=== PATIENT | male | born 1940 | race Caucasian/White ===

== ENCOUNTER → 2021-01-19 | Outpatient (CLI) | payer OTHER | LOC: COL.RAD 13:15 | DX: C41.2 Malignant neoplasm of vertebral column (principal); M21.821 Other specified acquired deformities of right upper arm | CPT/HCPCS: A9575 ==

== ENCOUNTER → 2021-01-22 | Outpatient (CLI) | payer OTHER | LOC: COL.RAD 09:15 | DX: C41.2 Malignant neoplasm of vertebral column (principal); C79.51 Secondary malignant neoplasm of bone; M21.821 Other specified acquired deformities of right upper arm | CPT/HCPCS: A9503 ==

== ENCOUNTER 2021-02-11 09:31 | Day surgery (SDC) | payer OTHER ==
[2021-02-11] VITALS (11 sets, daily range): BP systolic 117–132; BP diastolic 59–77; PULSE 51–74; TEMP 97.2–98.9
[~2021-02-11] VITALS: Ht 180.3 cm; Wt 75.6 kg
[2021-02-11] MEDS ORDERED: EUTHYROX50 MCG PO (10:31)
[2021-02-11] MEDS ORDERED: DECADRON 4MG TAB4 MG PO (10:32)
[2021-02-11] MEDS ORDERED: FLOMAX 0.40.4 MG/CAP PO (10:32)
[2021-02-11] MEDS ORDERED: PYRIDIUM 100MG100 MG PO (11:33)
--- NOTE | 2021-02-11 12:50 | NUR ---
Initial visit; Patient thanked Ledger Clerk for looking in on him and offering encouragement and prayer prior to his surgical procedure.
--- NOTE | 2021-02-11 14:00 | NUR ---
Pt is doing well, no pain complaints. CBI running at moderate rate. [place] tinged with no clots. Educated pt on post op care and well as oriented him to his room. Pts son is present in the room for the education. Assisted pt with ordering his food. No other needs needed, call light within reach
--- NOTE | 2021-02-11 14:52 | NUR ---
Pt continues to do well with no pain complaints. Slowed CBI down a little. Output continues to be pink tinged with no clots. Pt did tolerate a general diet, IVF int'd. Pts son remains in her room.
--- NOTE | 2021-02-11 18:44 | NUR ---
Pt has done well, tolerated general diet. CBI running at moderate rate with clear, red tinged output.
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
[2021-02-12 03:38] VITALS: BP 123/73; PULSE 69; TEMP 98.2
--- NOTE | 2021-02-12 06:11 | NUR ---
PT HAS BEEN UP TO BR THIS MORNING WITH SBA. PT REPORTS NO BM BUT HAS LOTS OF GAS ET A TRACE AMOUNT OF DARK LIQUID STOOL. PT AMBULATES EASILY IN ROOM, GAIT IS STEADY. CBI RUNNING @ A SLOW RATE. A FEW SMALL RED CLOTS ARE SEEN IN GU TUBING AFTER PT STANDS UP OUT OF BED BUT THEN QUICKLY CLEAR UP. URINE IS LIGHT PINK ET CLEAR NOW. PT HAS BEEN DRINKING WELL, REPORTS DRINKING LOTS OF WATER. DENIES OTHER NEEDS. CALL LIGHT WITHIN REACH.
[2021-02-12 07:26] VITALS: BP 127/60; PULSE 67; TEMP 98
--- NOTE | 2021-02-12 08:00 | NUR ---
Urology has been in to see pt, orders to remove allen and start 6 bottle. Educated pt on this and removed catheter. Pt not having any pain. He has had breakfast and tolerated it with no complaints. Placed urinal in bathroom and educated to ring nursing each time he goes. Call light within reach, will continue to monitor
--- NOTE | 2021-02-12 10:23 | NUR ---
Follow-up visit; Patient thanked Cell Tender for looking in on him this morning following his surgical procedure. Patient stated prayer was very helpful for him and his nurse prior to surgery. He stated following prayer she was able to find his vein after trying several times prior. God is Good he said and Cell Tender agreed.
--- NOTE | 2021-02-12 10:55 | NUR ---
child daycare worker met with patient to discuss discharge plan. Patient reports that he lives at home with his Cesar ([phone]) in [place]. Patient reports that he is fully independent with his activities of daily living and does not utilize any DME to assist with mobility. Patient has no oxygen needs at home. PCP is Dr. Alejandra in [place] and he utilizes [address] in [place] for medications with no cost difficulty. Patient states he does have a [facility] established listing his daughter Belia ([phone]). PCP office contacted and will be faxing a copy to the surgical unit. Patient is planning on returning home with no concerns. Discharge plan: Home
[2021-02-12 11:43] VITALS: BP 132/71; PULSE 76; TEMP 98.5
--- NOTE | 2021-02-12 12:00 | NUR ---
Pt has not been able to void since catheter out, bladder scan >800. Notified Dr Andrews. he stated to update Lexii ROBIN
--- NOTE | 2021-02-12 13:09 | NUR ---
Updated Lexii ROBIN regarding pt not being able to void, but having the feeling. Received order to replace allen and okay for pt to discharge home.
--- NOTE | 2021-02-12 14:26 | NUR ---
Pt was not able to void, catheter placed per order. Reviewed discharge instructions with pt. Pt reported that he has had a catheter for a while and understands how to care for it. INT removed. Educated pt to notify nursing when his ride is here.
== END 2021-02-12 14:37 | disposition home or self-care (01) ==
LOC: SDCO 09:31 → SURG 13:20 → SDCO 02-12 14:37
DX: C61 Malignant neoplasm of prostate (principal); N40.1 Benign prostatic hyperplasia with lower urinary tract symptoms; R33.8 Other retention of urine; R39.12 Poor urinary stream; R39.14 Feeling of incomplete bladder emptying; R35.1 Nocturia; E03.9 Hypothyroidism, unspecified; Z79.899 Other long term (current) drug therapy; Z79.890 Hormone replacement therapy
CPT/HCPCS: OP; J0690; J1100; J2405; J2704; J3010; J7120; J8540

== ENCOUNTER → 2021-04-07 | Outpatient (CLI) | payer MEDICARE ==
[~2021-04-07] MED LIST: DECADRON 4MG TAB4 MG PO; EUTHYROX50 MCG PO; FLOMAX 0.40.4 MG/CAP PO; PYRIDIUM 100MG100 MG PO
== END ==
LOC: COL.VAS 08:03
DX: R22.41 Localized swelling, mass and lump, right lower limb (principal)